=== PATIENT | female | born 1940 | race Caucasian/White ===

== ENCOUNTER 2023-09-05 08:21 | Day surgery (SDC) | payer MEDICARE, BC ==
[~2023-09-05] VITALS: Ht 160 cm; Wt 51.3 kg
[~2023-09-05 08:21] MED LIST: ATOR40TA PO; DENO60DI SUBCUT; LEVO75TA56 PO; MECL-302 PO; OMEP20CA16 PO; SERT-434 PO
[2023-09-05 08:54] VITALS: BP 142/55; PULSE 76; RESP 18
[2023-09-05] MEDS ORDERED: fentaNYL/PF 50MCG/1 ML 2ML syringe ONE (09:14)
[2023-09-05] MEDS ORDERED: midazolam 1 mg/ML 2ml injection ONE (09:15)
[2023-09-05] MEDS ORDERED: propofol 10mg/ml 20ml vial IV ONE (09:18)
[2023-09-05 09:55] VITALS: BP 103/62; PULSE 66; RESP 17; O2SAT 96
[2023-09-05 10:05] VITALS: BP 123/66; PULSE 65; RESP 16; O2SAT 97
[2023-09-05 10:15] VITALS: BP 135/65; PULSE 61; RESP 14; O2SAT 96
[2023-09-05 10:25] VITALS: BP 129/71; PULSE 61; RESP 16; O2SAT 96
== END 2023-09-05 10:31 | disposition home or self-care (01) ==
LOC: GI LAB 08:21
PROVIDERS: ATTEND Internal Medicine Gastroenterology
DX: R10.32 Left lower quadrant pain (principal); D12.8 Benign neoplasm of rectum; K57.30 Diverticulosis of large intestine without perforation or abscess without bleeding; E11.9 Type 2 diabetes mellitus without complications; J44.9 Chronic obstructive pulmonary disease, unspecified; Z88.0 Allergy status to penicillin
CPT/HCPCS: 45380; 45385; A4620; C1889; J2250; J2704; J3010; J7030; Z7512

== ENCOUNTER 2024-03-20 08:35 | Day surgery (SDC) | payer MEDICARE, BC ==
[2024-03-13 15:50] LABS: BASOPHILS # (AUTO) 0.1 X10'3 (0-0.2); BASOPHILS % (AUTO) 1.1 % (0-1); EOSINOPHILS # (AUTO) 0.2 X10'3 (0-0.9); EOSINOPHILS % (AUTO) 3.1 % (0-6); LYMPHOCYTES # (AUTO) 1.7 X10'3 (1.1-4.8); LYMPHOCYTES % (AUTO) 29.4 % (21-51); MEAN CORPUSCULAR HEMOGLOBIN 31.9 PG (27.0-31.0); MEAN CORPUSCULAR HGB CONC 33.8 g/dL (33.0-36.5); MEAN CORPUSCULAR VOLUME 94.5 FL (78-98); MONOCYTES # (AUTO) 0.4 X10'3 (0-0.9); MONOCYTES % (AUTO) 7.3 % (2-12); NEUTROPHILS # (AUTO) 3.4 X10'3 (1.8-7.7); NEUTROPHILS % (AUTO) 59.1 % (42-75); PRE OP HEMATOCRIT 38.3 % (35.0-45.0); PRE OP PLATELET COUNT 336 X10'3 (140-440); PRE OP WHITE BLOOD COUNT 5.8 10'3 (4.8-10.8); RED BLOOD COUNT 4.06 X10'6 (4.20-5.60); RED CELL DISTRIBUTION WIDTH 13.1 % (11.5-14.5)
[2024-03-13 15:59] LABS: ALBUMIN 3.5 G/DL (3.4-5.0); ALBUMIN/GLOBULIN RATIO 1.1 (1.1-1.5); ALKALINE PHOSPHATASE 79 IU/L (46-116); BLOOD UREA NITROGEN 13 MG/DL (7-18); BUN/CREATININE RATIO 17.1 (10.0-20.0); CALCIUM 9.5 MG/DL (8.5-10.1); CHLORIDE 106 MMOL/L (99-107); CREATININE 0.76 MG/DL (0.40-0.90); PRE OP ALT 16 U/L (30-65); PRE OP ANION GAP 3 (8-16); PRE OP AST 12 U/L (10-37); PRE OP BILIRUB, TOTAL 0.6 MG/DL (0.0-1.0); PRE OP GLUCOSE 101 MG/DL (70-104); PRE OP SODIUM 145 MMOL/L (135-145); TOTAL CARBON DIOXIDE 35.6 MMOL/L (24-32); TOTAL PROTEIN 6.8 G/DL (6.4-8.2); eGFR 73 ML/MIN
[2024-03-13 16:18] LABS: PRE OP POTASSIUM 3.3 MMOL/L (3.4-5.1)
[~2024-03-20] VITALS: Ht 160 cm; Wt 50.2 kg
[2024-03-20] VITALS (13 sets, daily range): BP systolic 125–188; BP diastolic 73–109; PULSE 70–110; RESP 10–20; TEMP 97.3; O2SAT 88–99
[2024-03-20] MEDS: clindamycin-Cleocin 900mg/D5W 50 ML IV ONE (05:30)
[2024-03-20] MEDS: famotidine 20mg tablet PO ONE (09:22)
[2024-03-20] MEDS: ringers solution, lacted 1,000 ML IV SCH (09:23)
[2024-03-20] MEDS ORDERED: BUPIVAcaine 2.5mg/ml inj 50ml vial (contains preservative) ONE (10:41)
[2024-03-20] MEDS ORDERED: LIDOcaine 1% 30ml preserv. free vial ONE (10:41)
[2024-03-20] MEDS ORDERED: sevoflurane 250ml liquid IH ONE (10:52)
[2024-03-20] MEDS ORDERED: midazolam 1 mg/ML 2ml injection ONE (10:58)
[2024-03-20] MEDS ORDERED: fentaNYL /PF 50mcg/ml 5ml ampule ONE (10:58)
[2024-03-20 11:19] LABS: ISTAT CREATININE 0.7 mg/dL (0.6-1.1); ISTAT HGB 12.6 g/dl (12.0-16.0); ISTAT IONIZED CALCIUM 1.22 mmol/L (1.03-1.32); ISTAT K 3.5 mmol/L (3.5-5.1); POC BUN/CREATININE RATIO 12.9 (6.6-38.0)
[2024-03-20] MEDS ORDERED: ePHEDrine 50MG/ML INJ. ONE (11:26)
[2024-03-20] MEDS ORDERED: rocuronium 10mg/ml inj IV ONE (11:26)
[2024-03-20] MEDS ORDERED: propofol inj 20 ML IV ONE (11:26)
[2024-03-20] MEDS ORDERED: dexamethasone sod phosphate 4mg/ml inj. ONE (11:26)
[2024-03-20] MEDS ORDERED: LIDOcaine 2% (20mg/ml) 5ml vial ONE (11:26)
[2024-03-20] MEDS ORDERED: ondansetron/PF 4mg/2ml inj ONE (11:26)
[2024-03-20] MEDS ORDERED: 0.9 % SODIUM CHLORIDE 10 ML VIAL ONE (11:27)
[2024-03-20] MEDS ORDERED: glycopyrrolate 0.2mg/ml inj ONE (11:55)
[2024-03-20] MEDS ORDERED: neostigmine methylsulfate 1 MG/ML 10ml vial ONE (11:55)
[2024-03-20] MEDS ORDERED: sugammadex 200mg/2ml injection IV ONE (11:58)
[2024-03-20] MEDS ORDERED: morphine 4 MG/ML inj SYRINge IV PRN (12:05)
[2024-03-20] MEDS ORDERED: proCHLORperazine 10 MG/2 ml inj IV PRN (12:05)
[2024-03-20] MEDS ORDERED: ondansetron/PF 4mg/2ml inj IV PRN (12:05)
[2024-03-20] MEDS ORDERED: HYDROmorphone/PF 0.2 MG/ML SYRINGE IV PRN ×2 (12:05)
[2024-03-20] MEDS ORDERED: ringers solution, lacted 1,000 ML IV SCH (12:05)
[2024-03-20] MEDS ORDERED: meperidine/PF 25mg/ml syringe IV PRN (12:05)
[2024-03-20] MEDS ORDERED: morphine 2 MG/ML inj. syringe IV PRN (12:05)
[2024-03-20] MEDS ORDERED: labetalol 20mg/4ml (5mg/ml) syringe IV PRN (12:05)
[2024-03-20] MEDS ORDERED: hydrALAZINE 20mg/ml inj. IV PRN (12:05)
[2024-03-20] MEDS ORDERED: HYDROcodone/acetaminophen 5mg/325mg tablet PO PRN (12:25)
[2024-03-20] MEDS: acetaminophen 1,000mg/100ml IV 100 ML IV PRN (12:41)
== END 2024-03-20 14:28 | disposition home or self-care (01) ==
LOC: PAS 08:35
PROVIDERS: ATTEND Surgery
DX: K40.90 Unilateral inguinal hernia, without obstruction or gangrene, not specified as recurrent (principal); E11.9 Type 2 diabetes mellitus without complications; E03.9 Hypothyroidism, unspecified; K21.9 Gastro-esophageal reflux disease without esophagitis; F32.A Depression, unspecified; F41.9 Anxiety disorder, unspecified; F10.90 Alcohol use, unspecified, uncomplicated; Z87.891 Personal history of nicotine dependence; Z98.890 Other specified postprocedural states; Z88.0 Allergy status to penicillin; Z88.2 Allergy status to sulfonamides; Z79.890 Hormone replacement therapy; Z79.899 Other long term (current) drug therapy
CPT/HCPCS: 36415; 49650; 80047; 80053; 82948; 85025; 93005; A4215; A4615; A4618; C1781; J0131; J1100; J2003; J2250; J2405; J2704; J2710; J3010; J3490; J7030; J7120; Z7506; Z7508; Z7512; Z7610